=== PATIENT | female | born 1940 | race Caucasian/White ===

== ENCOUNTER 2016-10-14 10:04 | Emergency (ER) | payer OTHER ==
--- NOTE | 2016-10-14 10:50 | ER NURSING DOCUMENTATION ---
Nurse's Notes [facility] Name:Alexandra Sanchez Age:76 yrs Sex:Female :1940 Arrival Date:10/14/2016 Time:10:04 Bed4 Private MD: Diagnosis:Foot Contusion Presentation: 10/14 10:20 Presenting complaint: Patient states: Noticed her left foot becoming bruised a couple rs days ago. Was afraid it was a clot (she has not hx of problems with clotting), so she started taking ASA, and the ecchymosis got worse. Her foot is nontender, the toes on both feet are cold. She has good sensation. Transition of care: patient was not received from another setting of care. Notified ED Physician of patient's arrival and CC Dr. Zavala notified. 10:20 Acuity: AMY 4 rs 10:20 Method Of Arrival: Private Vehicle rs Triage Assessment: 10:36 General: Appears in no apparent distress, comfortable, well developed, well nourished, rs well groomed, Behavior is cooperative, pleasant. Pain: Denies pain. Neuro: No deficits noted. Level of Consciousness is awake, alert, Oriented to person, place, time, event. Cardiovascular: No deficits noted. Capillary refill < 3 seconds Pulses are 3+ in left radial artery. Respiratory: No deficits noted. Respiratory effort is even, unlabored, Respiratory pattern is regular, symmetrical. GI: No deficits noted. Derm: No deficits noted. Skin is pink, warm & dry. Musculoskeletal: No deficits noted. Circulation, motion, and sensation intact Capillary refill Tenderness is absent. Reports ecchymosis Denies weakness in left foot numbness in, left foot pain in, left foot. Injury Description: no injury. Historical: - Allergies: No known drug Allergies; - Home Meds: 1. Aspirin Oral 2. Lipitor Oral 3. coQ10 (ubiquinol) oral 4. Aleve Oral 5. Melatonin Oral 6. B complex 7. Calcium Carbonate Oral 8. Doxycycline Oral - PMHx: rosacea; - PSHx: left rotator cuff repair; Hysterectomy; removal of adhesions; - Tetanus: < 10 years. - Ebola Screening: : Patient negative for fever greater than or equal to 101.5 degrees Fahrenheit, and additional compatible Ebola Virus Disease symptoms. Patient denies exposure to infectious person. Patient denies travel to an Ebola-affected area in the 21 days before illness onset. No symptoms or risks identified at this time. . - Immunization history: Unable to Obtain. - Social history: Smoking status: Patient states was never smoker of tobacco. Patient uses alcohol wine with dinner. Screenin:42 Infectious Disease Risk None. Abuse screen: Denies threats or abuse. Nutritional rs screening: No deficits noted. Assessment: 10:42 See Triage Assessment done by same RN. rs Vital Signs: 10:39 BP 125 / 73; Pulse 74; Resp 20; Temp 98.1; Pulse Ox 97.9% ; Weight 67.13 kg; Height 5 rs ft. 4 in. (162.56 cm); Pain 0/10; 10:39 Body Mass Index 25.40 (67.13 kg, 162.56 cm) rs ED Course: 10:05 Patient arrived in ED. lm3 10:08 Octavio Zavala MD is Attending Physician. ny 10:15 Notified ED Physician of patient's arrival and chief complaint. Dr. Zavala notified. Arm rs band placed on Bed in low position Call Light in Reach HOB Elevated Side rails up x1. Family accompanied patient. 10:20 Akilah Laurent RN is Primary Nurse. rs 10:26 Triage completed. rs 10:42 Valuables Remains with patient. rs Administered Medications: No medications were administered Outcome: 10:30 Discharge ordered by . sc 10:42 Discharged to home ambulatory. rs 10:42 Condition: good 10:42 Discharge instructions given to patient, family, Instructed on discharge instructions, medication usage, Demonstrated understanding of instructions, medications. 10:49 Patient left the ED. rs 10/15 16:42 Discharge F/U Call: Spoke with: patient. Did your discharge instructions answer all lc of your questions? yes Overall Care on a scale of 1-10 with 10 being the best care, you rate our care as: Other comments: HAS NO CONCERNS Signatures: Akilah Laurent RN RN rs Jewell Garg RN RN Octavio Zavala MD MD ny Verenice Barraza [id number]
--- NOTE | 2016-10-14 10:50 | ER PHYSICIAN DOCUMENTATION ---
Physician Documentation [facility] Name:Alexandra Sanchez Age:76 yrs Sex:Female :1940 Arrival Date:10/14/2016 Time:10:04 Bed4 Private MD: Octavio Pham Disposition: 10/14/16 10:30 Discharged to Home/Self Care. Impression: Foot Contusion. - Condition is Good. - Discharge Instructions: CONTUSION, Foot. - Medical Reconciliation form form. - Follow up: Emergency Department; When: As needed; Reason: Worsening of condition. - Problem is new. - Symptoms have improved. HPI: 10/14 10:33 This 76 yrs old Female presents to ER via Private Vehicle with complaints of sc Foot contusion. 10:33 The patient presents with a contusion. The complaints affect the left foot. Context: sc The problem was sustained at home, resulted from an unknown cause, over one week ago bruise on toe, worried about DVT so took asa. Onset: The symptom(s)/episode began/occurred 1 week(s) ago. Associated signs and symptoms: The patient has no apparent associated signs or symptoms. Historical: - Allergies: No known drug Allergies; - Home Meds: 1. Aspirin Oral 2. Lipitor Oral 3. coQ10 (ubiquinol) oral 4. Aleve Oral 5. Melatonin Oral 6. B complex 7. Calcium Carbonate Oral 8. Doxycycline Oral - PMHx: rosacea; - PSHx: left rotator cuff repair; Hysterectomy; removal of adhesions; - Tetanus: < 10 years. - Ebola Screening: : Patient negative for fever greater than or equal to 101.5 degrees Fahrenheit, and additional compatible Ebola Virus Disease symptoms. Patient denies exposure to infectious person. Patient denies travel to an Ebola-affected area in the 21 days before illness onset. No symptoms or risks identified at this time. . - Immunization history: Unable to Obtain. - Social history: Smoking status: Patient states was never smoker of tobacco. Patient uses alcohol wine with dinner. ROS: 10:34 MS/extremity: Positive for ecchymosis, Negative for decreased range of motion, pain, sc paresthesias. 10:34 Constitutional: Negative for fever, chills, and weight loss. sc Eyes: Negative for injury, pain, redness, and discharge. Respiratory: Negative for shortness of breath, cough, wheezing, and pleuritic chest pain. Back: Negative for injury and pain. Skin: Negative for injury, rash, and discoloration. 10:34 Neuro: Negative for headache, weakness, numbness, tingling, and seizure. Exam: Constitutional: This is a well developed, well nourished patient who is awake, alert, and in no acute distress. Head/Face: Normocephalic, atraumatic. Eyes: Pupils equal round and reactive to light, extra-ocular motions intact. Lids and lashes normal. Conjunctiva and sclera are non-icteric and not injected. Cornea within normal limits. Periorbital areas with no swelling, redness, or edema. Neck: Trachea midline, no thyromegaly or masses palpated, and no cervical lymphadenopathy. Supple, full range of motion without nuchal rigidity, or vertebral point tenderness. No meningismus. Chest/axilla: Normal chest wall appearance and motion. Nontender with no deformity. No lesions are appreciated. Cardiovascular: Regular rate and rhythm with a normal S1 and S2. No gallops, murmurs, or rubs. Normal PMI, no JVD. No pulse deficits. Respiratory: Lungs have equal breath sounds bilaterally, clear to auscultation and percussion. No rales, rhonchi or wheezes noted. No increased work of breathing, no retractions or nasal flaring. Abdomen/GI: Soft, non-tender, with normal bowel sounds. No distension or tympany. No guarding or rebound. No evidence of tenderness throughout. Back: No spinal tenderness. No costovertebral tenderness. Full range of motion. Skin: Warm, dry with normal turgor. Normal color with no rashes, no lesions, and no evidence of cellulitis. 10:37 Neuro: Awake and alert, GCS 15, oriented to person, place, time, and situation. sc Cranial nerves II-XII grossly intact. Motor strength 5/5 in all extremities. Sensory grossly intact. Cerebellar exam normal. Normal gait. 10:37 Musculoskeletal/extremity: Extremities: grossly normal except: ecchymosis, ROM: intact in all extremities, Circulation is intact in all extremities. Sensation intact. Vital Signs: 10:39 BP 125 / 73; Pulse 74; Resp 20; Temp 98.1; Pulse Ox 97.9% ; Weight 67.13 kg; Height 5 rs ft. 4 in. (162.56 cm); Pain 0/10; 10:39 Body Mass Index 25.40 (67.13 kg, 162.56 cm) rs MDM: 10:08 Patient medically screened. sc 10:37 Differential diagnosis: fracture, sprain. Data reviewed: vital signs, nurses notes, and sc as a result, I will discharge patient. Dispensed Medications: No medications were administered Signatures: Akilah Laurent RN RN rs Octavio Zavala MD MD sc
== END 2016-10-14 10:50 | disposition home or self-care (01) ==
LOC: ER 10:04
DX: S90.32XA Contusion of left foot, initial encounter (principal); Z79.82 Long term (current) use of aspirin; Z79.899 Other long term (current) drug therapy
CPT/HCPCS: 99281